=== PATIENT | female | born 1980 | race Caucasian/White ===

== ENCOUNTER 2018-04-08 17:25 | Emergency (ER) | payer OTHER ==
[~2018-04-08] VITALS: Ht 167.6 cm; Wt 146.5 kg
[~2018-04-08 17:25] MED LIST: ACETAMINOPHEN-1 EAC1 PO; APAP W/CODEINE1 TA2 PO; AZITHROMYCIN 2250 MG PO; BIRTH CONTROL; CARISOPRODOL 3350 MG PO; FLEXERIL PO; IBUPROFEN 800800 M1 PO; LYSTEDA650 MG PO; MEDROLDOSEPACK PO; NABUMETONE 750750 M1 PO; NAPROXEN 500MG500 MG PO; NOHOMEMEDICATIONS; NORCO 5-325 TA1 EACH PO; ONDANSETRON HCL4 M2 PO; OXYCODON-ACETA1 EAC1 PO; PERCOCET 5-3251 EACH PO; PREDNISONE 10 M10 M1 PO; PREDNISONE 20 M20 M1 PO; PRILOSEC 10MG C10 MG PO; PRILOSEC 20 MG20 MG PO; PROAIR HFA8.5 GM IH; PROMETHAZINE-D120 ML PO; ROBAXIN500 MG PO; VENTOLIN HFA INH8 GM IH; ZANTAC 150MG T150 MG; ZOFRAN ODT4 MG PO; ZPAK PO
[2018-04-08] MEDS ORDERED: AMOXICILLIN 50500 MG PO (17:33)
[2018-04-08] MEDS ORDERED: PROAIR HFA8.5 GM INH (17:34)
[2018-04-08] MEDS ORDERED: BENZONATATE200 MG PO (17:34)
[2018-04-08] MEDS ORDERED: [UNRECOGNIZED DRUG - REMARK] (17:35)
[2018-04-08] MEDS ORDERED: POLYMYXIN B/TMP10 ML OTIC (17:41)
[2018-04-08 17:46] VITALS: BP 186/101
== END 2018-04-08 17:47 | disposition home or self-care (01) ==
LOC: M.ERS 17:25
DX: H60.91 Unspecified otitis externa, right ear (principal); K21.9 Gastro-esophageal reflux disease without esophagitis; E11.9 Type 2 diabetes mellitus without complications